=== PATIENT | male | born 1985 | race Caucasian/White ===

== ENCOUNTER → 2018-05-23 | Outpatient (CLI) | payer MEDICARE ==
[~2018-05-23] MED LIST: BACL-51 PO; CLO1 PO; CRANACTIN; OXY5 PO; OXYB10TA21 PO; PREG25 PO; SENN-93 PO; TIZA6CAP7 PO; XANAFLEX
== END ==
LOC: RESP 21:01
PROVIDERS: ATTEND Nurse Practitioner Family
DX: G47.30 Sleep apnea, unspecified (principal)